=== PATIENT | female | born 2000 | race African-American/Black ===

== ENCOUNTER 2021-08-13 13:53 | Emergency (ER) | payer OTHER, SELFPAY ==
[2021-08-13 13:54] VITALS: BP 100/73; PULSE 87; RESP 16; TEMP 36.7; O2SAT 100; BMI 21.1
--- NOTE | 2021-08-13 15:53 | CT_ITS ---
STUDY: CT ABDOMEN AND PELVIS WITHOUT CONTRAST REASON FOR EXAM: Female, 21 years old. Abdominal pain RADIATION DOSAGE (If Supplied By Facility): CTDIvol = ( 6.05 ) mGy, DLP = ( 288.61 ) mGycm TECHNIQUE: Transaxial images were obtained from the dome of the diaphragm to the symphysis pubis with oral contrast, and without intravenous contrast. Sagittal and coronal images were reconstructed. Individualized dose optimization techniques were used for this CT. COMPARISON: None. FINDINGS: The visualized lung bases are unremarkable. The visualized portions of the heart are within normal limits. Normal liver. Normal gallbladder and extrahepatic biliary system. Normal spleen. Normal pancreas. Normal bilateral adrenal glands. Normal right kidney. Normal left kidney. Normal visualized stomach. Normal small intestine. Normal colon. There is non-visualization of the appendix. Normal abdominal aorta. Normal inferior vena cava. Normal retroperitoneum. Normal urinary bladder. Normal visualized uterus. Normal abdominal wall. Normal osseous structures. CT/Abdomen/Pel W ORAL Cont Only IMPRESSION: No suspicious solid organ abnormality No free intraperitoneal fluid, air, or suspicious adenopathy Electronically Signed: Pranay Mayer MD at 18:25 EST , Service support ,
--- NOTE | 2021-08-13 15:54 | EDS_ITS ---
HPI HPI - GI History of Present Illness Chief Complaint: Abd Pain Narrative Narrative: 21-year-old female who denies significant past medical history presents with nausea and vomiting, and bilateral lower quadrant abdominal pain that she has had since yesterday. She states that she vomited 6 times without any blood in her emesis, but was concerned because she saw something green. She complains of bilateral lower quadrant pain. She is currently on her menses. She denies any dysuria or gross hematuria. No exacerbating or alleviating factors to her abdominal pain. She states she is continually nauseated. [facility] Medical History Acute stomach ulcer Anemia Anxiety Lactose intolerance Home Medications NK 08/13/21 [History Last Taken Unknown] Allergy/AdvReac Type Severity Reaction Status Date / Time No Known Allergies Allergy Verified 08/13/21 13:58 Social History Smoking Status: Never smoker ROS ROS ED ROS Narrative Constitutional: No fever, no chills. HEENT: No sore throat. No neck pain. No loss of vision. No rhinorrhea. Cardiovascular: No chest pain. No palpitations. No pedal edema. Respiratory: No cough, no shortness of breath. Abdominal: Bilateral lower quadrant abdominal pain. Positive nausea. Positive vomiting-resolved. No hematemesis. Genitourinary: No dysuria. No hematuria. Musculoskeletal: No myalgias. No arthralgias. Neurologic: No headaches. No dizziness. No lightheadedness. Skin: No rash. No change in color. Psychiatric: No depression. No anxiety. EXAM Physical Exam Narrative Exam Narrative: Afebrile. Vital signs noted. HEENT: Normocephalic. Atraumatic. PERRL, EOMI. Neck soft and supple. No point tenderness or step off. Cardiovascular: Regular rate and rhythm. No murmurs, rubs, or gallops appreciated. Respiratory: No tachypnea. Lungs clear to auscultation bilaterally. Gastrointestinal: Abdomen soft, minimal tenderness to palpation bilateral lower quadrants, with normoactive bowel sounds. No rebound or guarding. Neurological: Awake. Alert. Nonfocal, nonlateralizing. Skin: No rash. Normal color. No pallor. Musculoskeletal: No pedal edema. Full range of motion extremities. Const Vital Signs: 08/13/21 13:54 08/13/21 16:15 Temperature 98.1 F Temperature Source Temporal Pulse Rate 87 88 Respiratory Rate 16 16 Blood Pressure 100/73 114/68 Blood Pressure Mean 82 83 Pulse Ox 100 97 Oxygen Delivery Method Room Air Room Air MDM MDM MDM Narrative Medical decision making narrative: Comprehensive work-up was pursued. She was administered normal saline 1 L intravenously along with ondansetron. I will check a CBC, CMP, and lipase along with and urinalysis. I will also order a CT with IV contrast because of her tenderness in her abdomen. Laboratory results are grossly unremarkable with a normal white count of 5.0, hemoglobin stable at 12.3 with hematocrit 39.7. Her electrolyte panel is grossly unremarkable. Lipase is normal at 163. Urinalysis is negative for nitrites, and microanalysis shows WBCs 0-5, within normal limits. There are greater than 100 RBCs, but the patient is currently on her menses. At this point in time, her CT of the abdomen and pelvis is currently pending. This will be signed out to the oncoming physician, Dr. Kapil Stallings, who will check the results and make final disposition on this patient. As all she has a negative CT scan I feel she can be discharged safely home with follow-up. Final disposition pending CT results. Patient is in stable condition. Lab Data Attestation: I reviewed the patient's lab results. Labs: Laboratory Results - last 24 hr 08/13/21 08/13/21 08/13/21 15:20 16:04 16:04 WBC 5.0 RBC 5.03 Hgb 12.3 Hct 39.7 MCV 78.9 L MCH 24.5 L MCHC 31.0 L RDW Std Deviation 42.3 RDW Coeff of Vladimir 14.8 H Plt Count TNP MPV 11.0 Immature Gran % (Auto) 0.000 Neut % (Auto) 29.3 L Lymph % (Auto) 59.3 H [place] % (Auto) 8.2 Eos % (Auto) 2.2 Baso % (Auto) 1.0 Absolute Neuts (auto) 1.5 L Absolute Lymphs (auto) 2.97 Nucleated RBC % 0 Platelet Estimate SLT DEC RBC Morphology N CHROM Anisocytosis RARE Microcytosis RARE Sodium 137 Potassium 3.5 Chloride 105 Carbon Dioxide 27.0 Anion Gap 5 BUN 11 Creatinine 0.87 Estim Creat Clear Calc 92.82 Est GFR (MDRD) Af Amer 106 Est GFR (MDRD) Non-Af 87 BUN/Creatinine Ratio 12.6 Glucose 79 Calcium 9.3 Total Bilirubin 0.90 AST 23 ALT 22 Alkaline Phosphatase 58 Total Protein 8.7 H Albumin 3.8 Globulin 4.9 H Albumin/Globulin Ratio 0.8 L Lipase 163 Serum , Qual Urine Color Yellow Urine Clarity Cloudy Urine pH 6.0 Ur Specific [place] 1.020 Urine Protein 100 H Urine Glucose (UA) Normal Urine Ketones 5 H Urine Occult Blood 250 H Urine Nitrite Negative Urine Bilirubin Negative Urine Urobilinogen 1 H Ur Leukocyte Esterase 25 H Urine RBC > 100 SEEN Urine WBC 0 SEEN Ur Squamous Epith Cells 0-5 SEEN Urine Bacteria 0 SEEN Urine Mucus 0 SEEN 08/13/21 16:04 WBC RBC Hgb Hct MCV MCH MCHC RDW Std Deviation RDW Coeff of [place] Plt Count MPV Immature Gran % (Auto) Neut % (Auto) Lymph % (Auto) [place] % (Auto) Eos % (Auto) Baso % (Auto) Absolute Neuts (auto) Absolute Lymphs (auto) Nucleated RBC % Platelet Estimate RBC Morphology Anisocytosis Microcytosis Sodium Potassium Chloride Carbon Dioxide Anion Gap BUN Creatinine Estim Creat Clear Calc Est GFR (MDRD) Af Amer Est GFR (MDRD) Non-Af BUN/Creatinine Ratio Glucose Calcium Total Bilirubin AST ALT Alkaline Phosphatase Total Protein Albumin Globulin Albumin/Globulin Ratio Lipase Serum , Qual NEGATIVE Urine Color Urine Clarity Urine pH Ur Specific [place] Urine Protein Urine Glucose (UA) Urine Ketones Urine Occult Blood Urine Nitrite Urine Bilirubin Urine Urobilinogen Ur Leukocyte Esterase Urine RBC Urine WBC Ur Squamous Epith Cells Urine Bacteria Urine Mucus Discharge Plan Triage Chief Complaint: Abd Pain ED Provider: Rhys Miles Dx/Rx/DC Orders Prescriptions: No Action NK RF: 0 Primary Care Provider: Care Physician,No Primary
[2021-08-13 16:15] VITALS: BP 114/68; PULSE 88; RESP 16; O2SAT 97
[2021-08-13 16:15] LABS: Bacteria 0 SEEN /hpf (None Seen); Mucous, Urine 0 SEEN /hpf (<or=2+); White Blood Cells 0 SEEN /hpf (0-5)
[2021-08-13 16:16] LABS: Absolute Lymphocyte Count 2.97 X10^3/uL (0.83-4.51); Absolute Neutrophil Count 1.5 X10^3/uL (2.0-7.7); Basophil# 0.05 X10^3/uL; Eosinophil# 0.11 X10^3/uL; Eosinophils% 2.2 % (0-5); Hematocrit 39.7 % (37-47); Hemoglobin 12.3 g/dL (12.0-15.0); Lymphocyte # 2.97 X10^3/ul (0.83-4.51); Lymphocyte % 59.3 % (19-41); Mean Corpuscular Hgb 24.5 pg (27.0-32.0); Mean Corpuscular Volume 78.9 fL (81-99); Monocyte# 0.41 X10^3/uL; Monocyte% 8.2 % (0-10); NRBC Flagged by Analyzer 0 % (0-5); Neutrophil # 1.47 X10^3/uL (2.7-7.7); Neutrophil % 29.3 % (47-70); POSITIVE COUNT YES; RBC Distribution Width CV 14.8 % (11.6-14.6); RBC Distribution Width SD 42.3 fl (35.1-43.9); Red Blood Count 5.03 M/mm3 (4.2-5.4)
[2021-08-13 16:19] LABS: Color, Urine Yellow (Yellow); Glucose, Dipstick Normal (Normal); Ketone-Dipstick 5 mg/dl (Negative); Leukocyte Esterase-Dipstick 25 /ul (Negative); Nitrite-Dipstick Negative (Negative); Occult Blood-Urine 250 /ul (Negative); Protein-Dipstick 100 mg/dl (Negative); Urine Bilirubin Dipstick Negative (Negative); Urine Clarity Cloudy (Clear); Urine Urobilinogen 1 mg/dl (Normal)
[2021-08-13] MEDS: Ondansetron 4 MG/2 ML Vial IV (16:23)
[2021-08-13] MEDS: 0.9% Normal Saline 1,000 ML 1000 ML IV (16:23)
[2021-08-13 16:24] LABS: Internal QC Validated? YES +Cl - CLEAR BKGD; Pregnancy, Serum, hCG Quali. NEGATIVE Negative
[2021-08-13 16:25] LABS: Red Blood Cells-Urine > 100 SEEN /hpf (0-5)
[2021-08-13 16:26] LABS: ALB/GLOB Ratio 0.8 RATIO (0.9-2.4); AST(SGOT) 23 U/L (15-37); Alanine Aminotransfer ALT/SGPT 22 U/L (13-56); Albumin, Serum 3.8 g/dL (3.2-5.0); Alkaline Phosphatase 58 U/L (45-117); Anion Gap 5 (5-15); BUN 11 mg/dL (7-18); BUN/Creat Ratio 12.6 RATIO (10-20); Calcium,Total 9.3 mg/dL (8.5-10.1); Chloride 105 mmol/L (98-107); Creatinine, Serum 0.87 mg/dL (0.55-1.02); EST Glomerular Filtration Rate 87 mL/min (>60); Est Glom Filt Rate - Afr Amer 106 mL/min (>60); Estimated Creatinine Clearance 92.82 ml/min; Globulin 4.9 g/dL (2.2-4.2); Glucose 79 mg/dL (74-106); Lipase 163 U/L (73-393); Potassium 3.5 mmol/L (3.5-5.1); Protein, Total 8.7 g/dL (6.4-8.2); Sodium Level 137 mmol/L (136-145)
[2021-08-13 16:26] LABS: Squamous Epithelial Cells - UA 0-5 SEEN /hpf (5-10)
[2021-08-13 16:51] LABS: Differential Indicated SCAN CRITERIA MET
[2021-08-13 16:52] LABS: Platelet Estimate SLT DEC (ADEQ)
[2021-08-13 16:53] LABS: Anisocytosis RARE; Microcytosis RARE; Red Cell Morphology N CHROM NORMAL (NORM C&C)
[2021-08-13 18:53] VITALS: BP 122/74; PULSE 72; RESP 18; TEMP 36.9; O2SAT 99
== END 2021-08-13 18:54 | disposition home or self-care (01) ==
PROVIDERS: Emergency Provider Emergency Medicine
DX: R11.2 Nausea with vomiting, unspecified (principal); R10.31 Right lower quadrant pain; R10.32 Left lower quadrant pain
CPT/HCPCS: 74176; 80053; 81001; 83690; 84703; 85025; 96361; 96374; 99283; J7030; A4216; J2405

== ENCOUNTER 2021-12-07 15:57 | Outpatient (CLI) | payer OTHER, SELFPAY | END 2021-12-07 23:59 | disposition home or self-care (01) | LOC: IMMUN 12-11 15:57 | PROVIDERS: Visit Provider Family Medicine | DX: Z23 Encounter for immunization (principal) ==

== ENCOUNTER 2023-08-09 14:47 | Emergency (ER) | payer OTHER, SELFPAY ==
[2023-08-09 14:48] VITALS: BP 106/63; PULSE 70; RESP 16; TEMP 36.2; O2SAT 100; BMI 23.6
--- NOTE | 2023-08-09 14:52 | NURSING ---
NO OLD EKGS
[2023-08-09 15:03] VITALS: BP 99/70; PULSE 63; RESP 14; O2SAT 100
--- NOTE | 2023-08-09 15:03 | EDS_ITS ---
HPI History of Present Illness Chief Complaint: Hypotension Detail of Chief Complaint: Syncope Informant: patient Narrative Narrative: Patient presents to the emergency department with complaint of syncopal episode that occurred while in the shower today. Patient states that she remembers feeling lightheaded and dizzy and then waking up on the floor. Her friend called EMS. Patient hurt her left ankle. She denies recent illness. She is currently on her menstrual period. She has had prior episode of syncope about 2 years ago while in the shower. Patient denies recent illness. [facility] Medical History Acute stomach ulcer Anemia Anxiety Lactose intolerance Home Medications ondansetron 4 mg disintegrating tablet 4 mg PO Q6H PRN nausea and vomiting #10 tabs 08/13/21 [Rx Last Taken Unknown] Allergy/AdvReac Type Severity Reaction Status Date / Time No Known Allergies Allergy Verified 08/09/23 14:48 Social History Smoking Status: Never smoker ROS ROS ED Review of Systems ROS Unobtainable: other Constitutional Constitutional ED: Reports lethargy; Denies chills, fever(s), sweats or weight loss Eyes Eyes: Denies blurry vision, change in vision or diplopia ENT ENT ED: Denies rhinorrhea or sore throat Cardiovascular Cardiovascular: Denies chest pain, orthopnea or racing heartbeat Respiratory/Chest Respiratory/Chest: Denies cough, dyspnea, dyspnea on exertion, orthopnea or sputum Gastrointestinal Gastrointestinal: Denies abdominal pain, diarrhea, nausea or vomiting Genitourinary Genitourinary ED: Denies dysuria, hematuria or urinary frequency Musculoskeletal Musculoskeletal: Denies arthralgias, back pain, myalgias or neck pain Integumentary Denies abscess, Abrasions or rash Neurologic Neurologic: Reports other Details: Syncope ; Denies headache(s) or weakness Psychiatric Psychiatric: Denies anxiety, depression or suicidal thoughts Endocrine Endocrinology: Denies polydipsia, polyphagia or polyuria Hematologic/Lymphatic Hematologic/Lymphatic: Denies easy bleeding, easy bruising or lymphadenopathy Allergic/Immunologic Allergic/Immunologic ED: Denies mouth swelling, tongue swelling or urticaria EXAM Physical Exam Const Vital Signs: 08/09/23 14:48 08/09/23 15:02 08/09/23 15:03 Temperature 97.2 F L Temperature Source Temporal Pulse Rate 70 63 Pulse Rate [Lying] Pulse Rate [Sitting (for 1 minute prior to obtaining)] Pulse Rate [Standing (for 1 minute prior to obtaining)] Respiratory Rate 16 14 Respiratory Effort Normal Non-Labored Respiratory Pattern Normal Blood Pressure 106/63 99/70 Blood Pressure [Lying] Blood Pressure [Sitting (for 1 minute prior to obtaining)] Blood Pressure [Standing (for 1 minute prior to obtaining)] Blood Pressure Mean 77 79 Blood Pressure Mean [Lying] Blood Pressure Mean [Sitting (for 1 minute prior to obtaining)] Blood Pressure Mean [Standing (for 1 minute prior to obtaining)] Pulse Ox 100 100 Oxygen Delivery Method Room Air Room Air 08/09/23 15:49 08/09/23 16:04 08/09/23 16:48 Temperature Temperature Source Pulse Rate 58 L 71 Pulse Rate [Lying] 73 Pulse Rate [Sitting (for 1 minute prior to obtaining)] 67 Pulse Rate [Standing (for 1 minute prior to obtaining)] 71 Respiratory Rate 16 15 Respiratory Effort Respiratory Pattern Blood Pressure 118/91 H 113/65 Blood Pressure [Lying] 118/91 H Blood Pressure [Sitting (for 1 minute prior to obtaining)] 111/77 Blood Pressure [Standing (for 1 minute prior to obtaining)] 113/68 Blood Pressure Mean 100 81 Blood Pressure Mean [Lying] 100 Blood Pressure Mean [Sitting (for 1 minute prior to obtaining)] 88 Blood Pressure Mean [Standing (for 1 minute prior to obtaining)] 83 Pulse Ox 100 98 Oxygen Delivery Method Room Air Positive well nourished and well developed General Appearance ED: well developed and NAD HEENT Reports TM's clear and moist mucous membranes normocephalic and atraumatic; Negative for trauma or tenderness Tympanic Membrane ED: Yes TM's clear Eyes PERRL and EOMs intact bilaterally General Eye ED: Negative for pale conjunctiva or scleral icterus Neck no lymphadenopathy, supple and no JVD General: Negative for tenderness Chest Wall inspection of chest normal and palpation of chest normal Chest: Negative for tenderness Resp normal respiratory effort and clear to auscultation bilaterally Effort and Inspection: Negative for respiratory distress or pain with movement Auscultation: Negative for rhonchi, wheezes or diminished lung sounds Cardio regular rate, regular rhythm, S1 normal heart sound, S2 normal heart sound and no murmurs Peripheral Pulses: pulses 2+ throughout GI normal to inspection, nondistended, normoactive bowel sounds, soft to palpation, non-tender, non-distended and no masses Back/Spine no CVA tenderness and no thoracic nor lumbar tenderness Extremity Extremity Narrative: Mild tenderness over lateral malleolus of the left ankle. No ecchymosis or bruising noted. No significant soft tissue swelling noted. No pain at the proximal fibular head. No pain at the base of the fifth metatarsal. General Extremety ED: Negative for edema General Extremity: Negative for edema Neuro oriented x3, CN's II-XII intact bilaterally, no sensory deficits noted and gait normal Sensorium / Orientation: awake, alert, oriented to person, oriented to place and oriented to time Motor Exam: strength 5/5 throughout and strength abnormal Psych mental status grossly normal Skin no rashes or lesions noted and no wounds MDM MDM MDM Narrative Medical decision making narrative: Patient presents with a syncopal episode in the shower. In the differential would be cardiac dysrhythmia versus vasovagal syncope. Less likely would be seizure. IV line established on arrival. CBC with differential obtained showing a 3.7 with hemoglobin of 12 and platelet count of 320. Chemistries unremarkable. hCG serum was negative. EKG obtained arrival shows sinus rhythm with no acute ST segment changes. Patient was given a liter of the same fluid bolus. Orthostatic vitals were negative. Patient feeling back to baseline. Suspect likely vasovagal episode. Patient advised to follow-up with primary care physician as needed. Lab Data Attestation: I reviewed the patient's lab results. Labs: Laboratory Results - last 24 hr 08/09/23 15:10 WBC 3.7 L RBC 4.95 Hgb 12.0 Hct 38.1 MCV 77.0 L MCH 24.2 L MCHC 31.5 L RDW Std Deviation 43.7 RDW Coeff of [place] 15.8 H Plt Count 320 MPV 10.0 Immature Gran % (Auto) 0.000 Neut % (Auto) 16.7 L Lymph % (Auto) 70.0 H [place] % (Auto) 10.6 H Eos % (Auto) 1.6 Baso % (Auto) 1.1 H Absolute Neuts (auto) 0.6 L Absolute Lymphs (auto) 2.57 Nucleated RBC % 0 Differential Comment SEE COMMENT Platelet Estimate ADEQUATE Plt Morphology Comment LARGE RBC Morphology N CHROM Anisocytosis RARE Microcytosis RARE Sodium 139 Potassium 3.6 Chloride 108 H Carbon Dioxide 26.0 Anion Gap 5 BUN 10 Creatinine 1.02 Estim Creat Clear Calc 77.85 Est GFR (MDRD) Af Amer 87 Est GFR (MDRD) Non-Af 72 BUN/Creatinine Ratio 9.8 L Glucose 83 Calcium 9.1 Serum , Qual NEGATIVE Radiography Diagnostic Testing: Clinical Impression(s) from Imaging Studies Ankle X-Ray 08/09/23 15:13 IMPRESSION: No acute bony injury. Electronically Signed: Bacilio Briggs MD at 15:27 EDT , Three-view x-rays left ankle obtained interpreted by myself as no evidence of fracture or dislocation. Radiology in agreement. EKG Initial EKG: Comments: Sinus rhythm with a rate of 64 bpm with occasional PACs. No signs of WPW. No evidence for pericarditis. Discharge Plan Triage Chief Complaint: Hypotension ED Provider: Jonathan Nixon Dx/Rx/DC Orders Clinical Impression: Vasovagal syncope, Left ankle sprain Instructions: ED Fainting, Vagal Reaction, ED Ankle Sprain (Adult) Prescriptions: No Action ondansetron 4 mg tablet,disintegrating 4 mg PO Q6H PRN (Reason: nausea and vomiting) Qty: 10 0RF Primary Care Provider: Care Physician,No Primary Referrals: Inge Sánchez MD [Med Staff - [employer] Engineer] - As Needed Care Physician,No Primary [Primary Care Provider] - Disposition Disposition: Home, Self Care Discharge Date/Time: 08/09/23 16:48
[2023-08-09] MEDS: 0.9% Normal Saline (1000mL) 1,000 ML 1000 ML IV (15:13)
--- NOTE | 2023-08-09 15:13 | RAD_ITS ---
INDICATION: Trauma, injury EXAMINATION/TECHNIQUE: X-RAY - LEFT XR Ankle Min 3 Views 3 VIEWS COMPARISON: None. FINDINGS: SOFT TISSUES: No soft tissue swelling or gas. No radiopaque foreign body. BONES/JOINTS: No acute fracture. Joint spaces anatomically aligned. RAD/Ankle min 3 Views IMPRESSION: No acute bony injury. Electronically Signed: Bacilio Briggs MD at 15:27 EDT ,
[2023-08-09 15:22] LABS: Absolute Lymphocyte Count 2.57 X10^3/uL (0.83-4.51); Absolute Neutrophil Count 0.6 X10^3/uL (2.0-7.7); Basophil# 0.04 X10^3/uL; Basophil% 1.1 % (0-1); Eosinophil# 0.06 X10^3/uL; Eosinophils% 1.6 % (0-5); Hematocrit 38.1 % (37-47); Lymphocyte # 2.57 X10^3/ul (0.83-4.51); Mean Corp Hgb Conc 31.5 g/dL (32-36); Mean Corpuscular Hgb 24.2 pg (27.0-32.0); Monocyte# 0.39 X10^3/uL; Monocyte% 10.6 % (0-10); NRBC Flagged by Analyzer 0 % (0-5); Neutrophil # 0.61 X10^3/uL (2.7-7.7); Neutrophil % 16.7 % (47-70); POSITIVE DIFFERENTIAL YES; Platelet Count 320 K/mm3 (150-450); RBC Distribution Width CV 15.8 % (11.6-14.6); RBC Distribution Width SD 43.7 fl (35.1-43.9); Red Blood Count 4.95 M/mm3 (4.2-5.4); White Blood Count 3.7 K/mm3 (4.4-11.0)
[2023-08-09 15:34] LABS: Internal QC Validated? YES +Cl - CLEAR BKGD; Pregnancy, Serum, hCG Quali. NEGATIVE Negative
[2023-08-09 15:36] LABS: Anion Gap 5 (5-15); BUN 10 mg/dL (7-18); BUN/Creat Ratio 9.8 RATIO (10-20); Calcium,Total 9.1 mg/dL (8.5-10.1); Chloride 108 mmol/L (98-107); Creatinine, Serum 1.02 mg/dL (0.55-1.02); EST Glomerular Filtration Rate 72 mL/min (>60); Est Glom Filt Rate - Afr Amer 87 mL/min (>60); Estimated Creatinine Clearance 77.85 ml/min; Glucose 83 mg/dL (74-106); Potassium 3.6 mmol/L (3.5-5.1); Sodium Level 139 mmol/L (136-145)
[2023-08-09 15:45] LABS: Differential Indicated SCAN CRITERIA MET
[2023-08-09 15:49] VITALS: BP 118/91; PULSE 58; RESP 16; O2SAT 100
[2023-08-09 16:01] LABS: Anisocytosis RARE; Platelet Estimate ADEQUATE (ADEQ); Platelet Morphology LARGE; Red Cell Morphology N CHROM NORMAL (NORM C&C)
[2023-08-09 16:02] LABS: Microcytosis RARE
[2023-08-09 16:04] VITALS: BP 111/77; BP 113/68; BP 118/91; PULSE 67; PULSE 71; PULSE 73
--- NOTE | 2023-08-09 16:31 | EKG12_ITS ---
Test Reason : HPOTENSION Blood Pressure : / mmHG Vent. Rate : 064 BPM Atrial Rate : 064 BPM P-R Int : 134 ms QRS Dur : 078 ms QT Int : 414 ms P-R-T Axes : 075 076 066 degrees QTc Int : 427 ms Normal sinus rhythm with sinus arrhythmia Normal ECG Confirmed by WILDER HERNÁNDEZ, OWEN ([id number]), purchase request editor DARIEN ORDAZ ([id number]) on 08/18/2023 7:00:24 AM Referred By: [facility] Confirmed By:THIERRY HDZ MD
[2023-08-09 16:48] VITALS: BP 113/65; PULSE 71; RESP 15; O2SAT 98
== END 2023-08-09 16:48 | disposition home or self-care (01) ==
PROVIDERS: Emergency Provider Emergency Medicine; Visit Provider Emergency Medicine
DX: R55 Syncope and collapse (principal); S93.402A Sprain of unspecified ligament of left ankle, initial encounter; X58.XXXA Exposure to other specified factors, initial encounter; Y93.E1 Activity, personal bathing and showering; Y92.89 Other specified places as the place of occurrence of the external cause
CPT/HCPCS: 73610; 80048; 84703; 85025; 93005; 96360; 99285; J7030

== ENCOUNTER → 2025-03-08 | Outpatient (CLI) | payer OTHER, SELFPAY ==
[2025-03-08 12:42] LABS: Absolute Lymphocyte Count 2.23 X10^3/uL (0.83-4.51); Absolute Neutrophil Count 1.5 X10^3/uL (2.0-7.7); Basophil# 0.05 X10^3/uL; Basophil% 1.2 % (0-1); Eosinophil# 0.09 X10^3/uL; Eosinophils% 2.1 % (0-5); Hematocrit 36.3 % (37-47); Hemoglobin 11.9 g/dL (12.0-15.0); Lymphocyte # 2.23 X10^3/ul (0.83-4.51); Lymphocyte % 52.3 % (19-41); Mean Corp Hgb Conc 32.8 g/dL (32-36); Mean Corpuscular Hgb 25.4 pg (27.0-32.0); Mean Corpuscular Volume 77.6 fL (81-99); Mean Platelet Vol. 9.6 fl (6.2-12.0); Monocyte# 0.38 X10^3/uL; Monocyte% 8.9 % (0-10); NRBC Flagged by Analyzer 0 % (0-5); Neutrophil % 35.3 % (47-70); Platelet Count 335 K/mm3 (150-450); RBC Distribution Width CV 14.5 % (11.6-14.6); RBC Distribution Width SD 40.7 fl (35.1-43.9); Red Blood Count 4.68 M/mm3 (4.2-5.4); White Blood Count 4.3 K/mm3 (4.4-11.0)
[2025-03-08 14:01] LABS: ALB/GLOB Ratio 1.2 RATIO (0.9-2.4); AST(SGOT) 21 U/L (<=31); Alanine Aminotransfer ALT/SGPT 17 U/L (<=34); Albumin, Serum 4.1 g/dL (3.5-5.0); Alkaline Phosphatase 66 U/L (35-104); Anion Gap 11 (5-15); BUN 7 mg/dL (4-19); BUN/Creat Ratio 9.1 RATIO (10-20); Calcium,Total 9.4 mg/dL (7.6-11.0); Carbon Dioxide 20.9 mmol/L (21.0-32.0); Chloride 104 mmol/L (98-108); Creatinine, Serum 0.75 mg/dL (0.70-1.20); EST Glomerular Filtration Rate 115 (>60); Ferritin 17 ng/mL (22-378); Globulin 3.4 g/dL (2.2-4.2); Glucose 86 mg/dL (70-99); Iron 87 ug/dL (50-170); Iron Binding Capacity,Total 364 ug/dL (250-450); Iron Binding Capacity,Unsat 277 ug/dL (228-428); Magnesium 1.9 mg/dL (1.5-2.2); Potassium 3.9 mmol/L (3.3-5.1); Protein, Total 7.5 g/dL (5.9-8.4); Sodium Level 136 mmol/L (133-145); Thyroid Stim Hormone (TSH) 0.463 uIU/mL (0.300-4.200); Total Bilirubin 0.98 mg/dL (0.00-1.30); Vitamin B12 766 pg/mL (180-914); Vitamin D,25 Hydroxy 14.3 ng/mL (30-100)
== END | disposition home or self-care (01) ==
LOC: VSLAB 12:07
PROVIDERS: PCP Nurse Practitioner Family; Visit Provider Nurse Practitioner Family
DX: R42 Dizziness and giddiness (principal); R53.83 Other fatigue
CPT/HCPCS: 36415; 80053; 82306; 82607; 82728; 83540; 83550; 83735; 84439; 84443; 85025